=== PATIENT | male | born 1965 | race African-American/Black ===

== ENCOUNTER → 2020-10-17 15:57 | Outpatient (CLI) | payer OTHER, SELFPAY ==
--- NOTE | ~2020-10-17 | XR_ITS ---
EXAMINATION: XR shoulder RT min 2V INDICATION: Right shoulder pain TECHNIQUE: Four views of the right shoulder are submitted. COMPARISON: None FINDINGS: Normal alignment. No fracture. There is moderate osteoarthritis of the acromioclavicular an d glenohumeral joints. Soft tissues are unremarkable. IMPRESSION: 1. Moderate osteoarthritis of the shoulder without acute findings. Reviewed, dictated and finalized at location A.
--- NOTE | ~2020-10-17 | XR_ITS ---
EXAMINATION:XR cervical spine 4-5V DATE: 10/17/2020 16:34 INDICATION: Neck pain TECHNIQUE: AP, lateral, lateral swimmers and odontoid views of the cervical spine are provided. COMPARISON: CT, 12/23/2014 FINDINGS: There are 3 mm of retrolisthesis of C5 on C6. The odontoid is intact. No fracture is identi fied. The vertebral body heights are normal. There is moderate loss of intervertebral disc space heig ht at C5-6 and C6-7 and mild loss of intervertebral disc space height throughout the remainder of the cervical spine. Degenerative osteophytes project from the anterior endplates of multiple vertebral b odies. There is moderate uncovertebral joint osteoarthritis at C5-6 and C6-7. Prevertebral soft tissu es are normal. IMPRESSION: 1. Moderate cervical spondylosis without acute findings or significant interval change. Reviewed, dictated and finalized at location A.
== END ==
PROVIDERS: PCP Physician Assistant; Visit Provider Physician Assistant
DX: M25.511 Pain in right shoulder (principal); M19.011 Primary osteoarthritis, right shoulder; M47.812 Spondylosis without myelopathy or radiculopathy, cervical region
CPT/HCPCS: 72050; 73030

== ENCOUNTER 2020-11-15 15:33 | Outpatient (CLI) | payer OTHER, SELFPAY ==
--- NOTE | ~2020-11-15 | MR_ITS ---
EXAMINATION: MR shoulder RT wo con DATE: 11/15/2020 16:51 INDICATION: Right shoulder pain. TECHNIQUE: Magnetic resonance imaging (MRI) of the right shoulder was performed without intravenous c ontrast. Sequences included axial PD-weighted FS FSE, coronal oblique PD-weighted FS FSE and T2-weigh miracle FS FSE, and sagittal oblique T2-weighted FS FSE and T1-weighted FSE. COMPARISON: Right shoulder radiographs 10/17/2020 FINDINGS: Coracoacromial arch: The acromion undersurface is curved in morphology (type II). There is severe acromioclavicular joint osteoarthritis including inferiorly directed osteophytes. Subacromial spurring is noted. There is mil d subacromial subdeltoid bursitis. Rotator cuff: There is a bursal-sided, partial-thickness tear of supraspinatus tendon measuring 8 mm anterior to po sterior by 5 mm proximal to distal by 70% tendon thickness. There is mild infraspinatus tendinopathy. Teres minor tendon is normal. There is mild subscapularis tendinopathy. There is mild fatty atrophy of infraspinatus muscle belly. There is mildly increased T2-weighted signal intensity throughout supr aspinatus and infraspinatus muscles, consistent with subacute denervation. Biceps tendon and glenoid labrum: Biceps tendon is in bicipital groove. Intra-articular biceps tendon is normal. There is degeneration of the glenoid labrum without well-defined tear. Fluid: There is no glenohumeral joint effusion. Bones/cartilage: Glenoid cartilage is normal. Humeral head cartilage is normal. IMPRESSION: 1. Bursal-sided, partial-thickness tear of supraspinatus tendon. 2. Increased T2-weighted signal intensity throughout supraspinatus and infraspinatus muscle bellies, consistent with subacute denervation, which may be seen with [place]-Joe syndrome. No evidence o f supraspinatus nerve impingement. 3. Severe acromioclavicular joint osteoarthritis. 4. Mild subacromial/subdeltoid bursitis. Reviewed, dictated and finalized at location A. IMPRESSION: 1. Bursal-sided, partial-thickness tear of supraspinatus tendon. 2. Increased T2-weighted signal intensity throughout supraspinatus and infraspi natus muscle bellies, consistent with subacute denervation, which may be seen w ith [place]-Joe syndrome. No evidence of supraspinatus nerve impingement. 3. Severe acromioclavicular joint osteoarthritis. 4. Mild subacromial/subdeltoid bursitis.
--- NOTE | ~2020-11-15 | MR_ITS ---
EXAMINATION: MR cervical spine wo con DATE: 11/15/2020 16:36 INDICATION: Neck pain. TECHNIQUE: Magnetic resonance imaging (MRI) of the cervical spine was performed without intravenous c ontrast. Sequences included sagittal T2-weighted FSE, sagittal STIR FSE, sagittal T1-weighted FSE, ax ial MERGE, and axial T2-weighted FSE. COMPARISON: Cervical spine radiographs 10/17/2020 FINDINGS: There is 2 mm retrolisthesis of C5 on C6 cysts. Vertebral body heights are normal. There is mildly decreased disc height at C4-C5 and moderately decreased disc height at C5-C6 and C6-C7. The s suellen cord signal intensity is normal. The following disc levels are specifically discussed: C2-C3: The disc does not extend beyond the endplate margin. There is no uncovertebral joint osteoarth ritis. There is mild left facet joint osteoarthritis. There is no neural foraminal stenosis. There is no central canal stenosis. C3-C4: The disc does not extend beyond the endplate margin. There is no uncovertebral joint osteoarth ritis. There is no facet joint osteoarthritis. There is no neural foraminal stenosis. There is no mariaa tral canal stenosis. C4-C5: The disc is bulging with superimposed right foraminal extrusion. There is mild bilateral uncov ertebral joint osteoarthritis. There is mild left facet joint osteoarthritis. There is moderate right and mild left neural foraminal stenosis. There is mild central canal stenosis. C5-C6: The disc is bulging. There is moderate right and severe left uncovertebral joint osteoarthriti s. There is mild left facet joint osteoarthritis. There is mild left neural foraminal stenosis. There is mild central canal stenosis. C6-C7: The disc is bulging. There is severe bilateral uncovertebral joint osteoarthritis. There is no facet joint osteoarthritis. There is mild bilateral neural foraminal stenosis. There is mild central canal stenosis. C7-T1: The disc does not extend beyond the endplate margin. There is moderate uncovertebral joint ost eoarthritis. There is severe bilateral facet joint osteoarthritis. There is mild bilateral neural for aminal stenosis. There is no central canal stenosis. IMPRESSION: 1. Moderate cervical spondylosis. Reviewed, dictated and finalized at location A.
== END 2020-11-15 15:34 | disposition home or self-care (01) ==
PROVIDERS: PCP Physician Assistant; Visit Provider Physician Assistant
DX: M19.011 Primary osteoarthritis, right shoulder (principal); M75.51 Bursitis of right shoulder; M47.22 Other spondylosis with radiculopathy, cervical region
CPT/HCPCS: 72141; 73221